=== PATIENT | female | born 1985 | race American Indian/Alaskan Native ===

== ENCOUNTER 2017-01-31 17:07 | Emergency (ER) | payer SELFPAY ==
[2017-01-31 19:22] VITALS: BP 189/102
[2017-01-31 20:10] LABS: Basophils % (Auto) 0.5 % (0.0-1.8); Eosinophils % (Auto) 1.1 % (0.0-4.3); Hematocrit 38.2 % (30.3-42.9); Hemoglobin 11.9 gm/dl (10.1-14.3); Mean Corpuscular HGB Conc 31 % (30-34); Mean Corpuscular Hemoglobin 27 pg (28-32); Mean Corpuscular Volume 85 fl (79-97); Platelet Count 363 K/mm3 (140-440); Red Cell Distribution Width 15.6 % (13.2-15.2); White Blood Count 11.9 K/mm3 (4.5-11.0)
[2017-01-31 20:24] LABS: BUN/Creatinine Ratio 17.14; Blood Urea Nitrogen 12 mg/dL (7-17); Calcium 9.6 mg/dL (8.4-10.2); Carbon Dioxide 28 mmol/L (22-30); Glucose 101 mg/dL (65-100)
[2017-01-31 20:25] LABS: Anion Gap 18 mmol/L; Chloride 100.2 mmol/L (98-107); Potassium 3.9 mmol/L (3.6-5.0); Sodium 142 mmol/L (137-145)
== END 2017-02-01 00:15 | disposition left against medical advice (07) ==
LOC: ED 17:07
DX: R51 Headache (principal); R42 Dizziness and giddiness; R07.89 Other chest pain; R11.0 Nausea; Z53.21 Procedure and treatment not carried out due to patient leaving prior to being seen by health care provider
CPT/HCPCS: 36415; 80048; 84484; 85025; 93005; 93010

== ENCOUNTER 2020-10-16 05:59 | Day surgery (SDC) | payer OTHER ==
[2020-10-09 10:46] LABS: Hematocrit 37.8 % (30.3-42.9); Hemoglobin 12.6 gm/dl (10.1-14.3); Mean Corpuscular HGB Conc 33 % (30-34); Mean Corpuscular Volume 89 fl (79-97); Platelet Count 336 K/mm3 (140-440); Red Blood Count 4.23 M/mm3 (3.65-5.03); Red Cell Distribution Width 13.5 % (13.2-15.2)
[2020-10-16] MEDS ORDERED: ACETAMINOPHEN 500 MG TAB PO SCH (06:00)
[2020-10-16] MEDS ORDERED: CELECOXIB 200 MG CAP PO NR (06:00)
[2020-10-16] MEDS ORDERED: MIDAZOLAM 2 MG/2 ML INJ IV NR (06:00)
[2020-10-16] MEDS ORDERED: SCOPOLAMINE TRANSDERMAL PATCH 72 HR TD NR (06:00)
[2020-10-16] MEDS ORDERED: GABAPENTIN 300 MG CAP PO NR (06:00)
[2020-10-16] MEDS ORDERED: LACTATED RINGERS 1,000 ML IV SCH (06:00)
[2020-10-16] MEDS ORDERED: BACTERIOSTATIC SODIUM CHLORIDE 0.9% 30 ML VIAL INFILTRATI ONE (06:30)
[2020-10-16] MEDS ORDERED: ceFAZolin/STERILE WATER 2 GM/20 ML SYRINGE IV NR (07:00)
--- NOTE | 2020-10-16 07:15 | Anesthesia Day of Surgery ---
Anesthesia Day of Surgery - Day of Surgery Patient Examined: Yes Patient H&P Reviewed: Yes Patient is NPO: Yes
--- NOTE | 2020-10-16 07:15 | Anesthesia Consultation ---
Anesthesia Consult and Med Hx Date of service: 10/16/20 - Airway Anesthetic Teeth Evaluation: Good (braces) ROM Head & Neck: Adequate Mental/Hyoid Distance: Adequate Mallampati Class: Class III Intubation Access Assessment: Possibly Difficult - Pre-Operative Health Status ASA Pre-Surgery Classification: ASA2 Proposed Anesthetic Plan: General - Pulmonary Hx Smoking: No Hx Respiratory Symptoms: No - Cardiovascular System Hx Hypertension: No - Central Nervous System CVA: No - Gastrointestinal Hx Gastroesophageal Reflux Disease: Yes (asymptomatic today) - Endocrine Hx Renal Disease: No Hx Liver Disease: No Hx Insulin Dependent Diabetes: No Hx Non-Insulin Dependent Diabetes: No Hx Thyroid Disease: No - Other Systems Hx Obesity: Yes (BMI 40)
[2020-10-16] MEDS ORDERED: ONDANSETRON 4 MG/2 ML INJ ONE (07:26)
[2020-10-16] MEDS ORDERED: fentaNYL 100 MCG/2 ML INJ ONE (07:26)
[2020-10-16] MEDS ORDERED: SUCCINYLCHOLINE CHLORIDE 200 MG/10 ML INJ MDV ONE (07:26)
[2020-10-16] MEDS ORDERED: dexAMETHasone 20 MG/5 ML VIAL ONE (07:26)
[2020-10-16] MEDS ORDERED: LIDOCAINE MPF (2%) 20 MG/1 ML VIAL 5 ML ONE (07:26)
[2020-10-16] MEDS ORDERED: propofoL 200 MG/20 ML VIAL IV ONE (07:26)
[2020-10-16] MEDS ORDERED: ROCURONIUM 50 MG/5 ML INJ IV ONE (07:26)
[2020-10-16] MEDS ORDERED: KETOROLAC 30 MG/1 ML INJ ONE (07:27)
[2020-10-16] MEDS ORDERED: ONDANSETRON 4 MG/2 ML INJ IV PRN (07:29)
[2020-10-16] MEDS ORDERED: BUPIVACAINE/PF (0.25%) 2.5 MG/ML 30 ML VIAL INFILTRATI ONE ×2 (07:57→08:10)
[2020-10-16] MEDS ORDERED: LIDOCAINE (1%) 10 MG/1 ML VIAL 20 ML MDV ONE (07:57)
[2020-10-16] MEDS ORDERED: PHENYLEPHRINE/NS 1,000 MCG/10 ML SYRINGE (OR USE) IV ONE (08:08)
[2020-10-16] MEDS ORDERED: LIDOCAINE (1%) 10 MG/1 ML VIAL 20 ML MDV INFILTRATI ONE (08:10)
[2020-10-16] MEDS ORDERED: SODIUM CHLORIDE 0.9% IRR 1,500 ML BOTTLE IR ONE (08:12)
[2020-10-16] MEDS ORDERED: ePHEDrine SULFATE 50 MG/1 ML INJ ONE (08:18)
[2020-10-16] MEDS ORDERED: GLYCOPYRROLATE 0.4 MG/2 ML INJ ONE (08:37)
[2020-10-16] MEDS ORDERED: NEOSTIGMINE 10MG/10 ML INJ MDV ONE (08:37)
[2020-10-16] MEDS ORDERED: LACTATED RINGERS 1,000 ML ONE (08:46)
--- NOTE | 2020-10-16 08:52 | Short Stay Summary ---
Short Stay Documentation Date of service: 10/16/20 - History Principal diagnosis: umbilical hernia H&P: obtained from office - Allergies and Medications Current Medications: Allergies No Known Allergies Allergy (Verified 10/11/15 16:48) Home Medications Medication Instructions Recorded Confirmed Last Taken Type No Known Home Medications [No 10/11/15 10/11/15 Unknown History Reported Home Medications] Active Medications Acetaminophen (Acetaminophen 500 Mg Tab) 1,000 mg PO PREOP LENNIE Stop: 10/16/20 20:00 Last Admin: 10/16/20 06:45 Dose: 1,000 mg Documented by: Cefazolin Sodium (Cefazolin/Sterile Water 2 Gm/20 Ml Syringe) 2 gm IV PREOP NR Stop: 10/16/20 20:00 Celecoxib (Celecoxib 200 Mg Cap) 200 mg PO PREOP NR Stop: 10/16/20 20:00 Last Admin: 10/16/20 06:45 Dose: 200 mg Documented by: Gabapentin (Gabapentin 300 Mg Cap) 300 mg PO PREOP NR Stop: 10/16/20 20:00 Last Admin: 10/16/20 06:45 Dose: 300 mg Documented by: Hydromorphone HCl (Hydromorphone 1 Mg/1 Ml Inj) 0.5 mg IV Q10MIN PRN PRN Reason: Pain , Severe (7-10) Stop: 10/16/20 23:00 Lactated Ringer's (Lactated Ringers) 1,000 mls @ 100 mls/hr IV DIRECT LENNIE Stop: 10/16/20 23:59 Last Admin: 10/16/20 06:55 Dose: 100 mls/hr Documented by: Midazolam HCl (Midazolam 2 Mg/2 Ml Inj) 2 mg IV PREOP NR Stop: 10/16/20 20:00 Last Admin: 10/16/20 07:12 Dose: 2 mg Documented by: Ondansetron HCl (Ondansetron 4 Mg/2 Ml Inj) 4 mg IV ONCE PRN PRN Reason: Nausea And Vomiting Stop: 10/16/20 13:00 Scopolamine (Scopolamine Transdermal Patch 72 Hr) 1 each TD PREOP NR Stop: 10/16/20 20:00 Last Admin: 10/16/20 06:42 Dose: 1 each Documented by: - Brief post op/procedure progress note Date of procedure: 10/16/20 Pre-op diagnosis: umbilical hernia Post-op diagnosis: same Procedure: open primary umbilical hernia repair Anesthesia: GETA, local Findings: <0.5cm fascial defect Surgeon: RONALD LOPEZ [employer] Fabricator And Assembler: MARCIA JAUREGUI Estimated blood loss: minimal Pathology: none Condition: stable - Hospital course Hospital course: Pt observed in PACU and discharged to home in stable condition when criteria met - Disposition Condition at discharge: Good Disposition: DC-01 TO HOME OR SELFCARE Short Stay Discharge Plan Activity: other (No heavy lifting for 6 weeks) Diet: regular Wound: open to air, per your surgeon's advice Additional Instructions: Please see printed discharge instructions Follow up with: SOPHIE ERNST MD [Primary Care Provider] - 7 Days RONALD LOPEZ DO [Staff Physician] - 14 Days Prescriptions: Ibuprofen [Motrin 800 MG tab] 800 mg PO Q8HR PRN #30 tablet PRN Reason: Pain, Moderate (4-6) HYDROcodone/APAP 5-325 [Lancing 5/325] 1 each PO Q6HR PRN #20 tablet PRN Reason: Pain , Severe (7-10)
[2020-10-16] MEDS: HYDROmorphone 1 MG/1 ML INJ IV PRN ×2 (09:03→09:13)
[2020-10-16 10:45] VITALS: BP 151/90
--- NOTE | 2020-10-16 11:04 | Post Anesthesia Evaluation ---
- Post Anesthesia Evaluation Patient Participated: Yes Airway Patent: Yes Stable Respiratory Function: Yes Nausea/Vomiting: No Temp > 96.8F: Yes Pain Manageable: Yes Adequeate Hydration: Yes Anesthesia Complications: No
--- NOTE | 2020-10-17 12:44 | Operative Report ---
Operative Report Operative Report: Date of procedure: 10/16/20 Pre-op diagnosis: umbilical hernia Post-op diagnosis: same Procedure: open primary umbilical hernia repair Anesthesia: GETA, local Findings: <0.5cm fascial defect Surgeon: RONALD LOPEZ Workers Compensation Claims Specialist: MARCIA JAUREGUI Estimated blood loss: minimal Pathology: none Condition: stable - Hospital course Hospital course: Pt observed in PACU and discharged to home in stable condition when criteria met HPI indication: Patient is a 34-year-old female who presented to the surgery clinic with an umbilical hernia. The patient was having more discomfort in the area and elected to have this fixed. As the hernia was very small it was recommended to fix using an open approach with possible use of mesh. All risk, benefits, alternatives to surgery discussed with patient questions answered. Consent was obtained. Procedure in detail: Patient was identified in the preoperative area, taken back to the operating room and placed on the operating room table in supine position. After anesthesia was induced the abdomen was prepped and draped in usual sterile fashion timeout performed. Local anesthetic was infiltrated into the skin at the intended incision site. An inverted semilunar incision was made at the superior aspect of the umbilicus using a 15 blade. Dissection was carried down through skin and subcutaneous tissue using Bovie electrocautery until the hernia was encountered. The hernia sac and its contents were circumferentially dissected free from the surrounding tissue using a hemostat and electrocautery. The fascia was identified and freed of overlying tissue circumferentially. The fascial defect was less than 0.5cm. Therefore it was decided to repair the hernia primarily. The fascial defect was closed with 0 Prolene interrupted stitches. The umbilicus was tacked down to the fascia using a 3-0 Vicryl interrupted stitch. The deep dermal layer was closed using 3-0 Vicryl interrupted sutures. The skin was approximated using 4-0 Monocryl subcuticular running stitch and skin glue. The umbilical skin was examined and was healthy without injury. After the glue was dry a 4 x 4 fluff gauze was placed in the umbilicus and secured with a Tegaderm. At the end of the case, all sponge, instrument, sharp counts were correct x2. The patient was awoken from anesthesia extubated and taken to PACU in stable condition.
== END 2020-10-16 10:05 | disposition home or self-care (01) ==
LOC: OR 05:59
PROVIDERS: ATTEND Surgery
DX: K42.9 Umbilical hernia without obstruction or gangrene (principal); Z20.822 Contact with and (suspected) exposure to COVID-19; K21.9 Gastro-esophageal reflux disease without esophagitis; E66.9 Obesity, unspecified; D64.9 Anemia, unspecified; Z98.891 History of uterine scar from previous surgery; Z79.899 Other long term (current) drug therapy; Z98.890 Other specified postprocedural states; Z68.41 Body mass index [BMI] 40.0-44.9, adult
CPT/HCPCS: 36415; 49585; 84703; 85027; J0330; J0690; J1100; J1170; J1885; J2250; J2370; J2405; J2704; J2710; J3010; J7120; U0003